=== PATIENT | female | born 1965 | race Native Hawaiian/Other Pacific Islander ===

== ENCOUNTER 2020-11-27 09:50 | Outpatient (CLI) | payer BC | END 2020-11-27 21:22 | disposition home or self-care (01) | LOC: RAD 09:50 | PROVIDERS: ATTEND Nurse Practitioner | DX: M79.671 Pain in right foot (principal) ==

== ENCOUNTER 2020-12-03 10:17 | Outpatient (CLI) | payer BC, OTHER | END 2020-12-03 23:59 | disposition home or self-care (01) | LOC: INF 10:17 | PROVIDERS: ATTEND Internal Medicine | DX: Z23 Encounter for immunization (principal) | CPT/HCPCS: 96372 ==

== ENCOUNTER 2020-12-31 09:47 | Outpatient (CLI) | payer BC, OTHER | END 2020-12-31 21:44 | disposition home or self-care (01) | LOC: INF 09:47 | PROVIDERS: ATTEND Internal Medicine | DX: Z23 Encounter for immunization (principal) | CPT/HCPCS: 96372 ==